=== PATIENT | female | born 1945 | race Caucasian/White ===

== ENCOUNTER 2016-08-19 09:40 | Inpatient (IN) | payer OTHER, MEDICARE ==
[~2016-08-19] VITALS: Ht 170.2 cm; Wt 73.5 kg
[~2016-08-19 09:40] MED LIST: ASPI81TA28 PO; CHOL100010 PO; CRAN1CAP15 PO; DOCU100C31 PO; FERR1TAB13 PO; METO50TA7 PO; MULT-602 PO; PANT40TA PO; PARO1TAB27 PO; SIMV20TA5 PO
--- NOTE | 2016-08-19 10:47 | EMERGENCY ROOM VISIT NOTE ---
History Report prepared by Lonnie: Godwin Daley Under the Supervision of: Dr. Maria Luisa Carrillo M.D. First contact with patient: 10:16 Chief Complaint: FLU LIKE SX Stated Complaint: FLU LIKE SYMPTOMS History of Present Illness The patient is a 71 year old female who presents to the Emergency Room with complaints of persistent confusion starting about 2 hours ago. The patient had also been complaining of chest pain and arm pain. Her was unable to understand what she was saying. The patient remembers waking up but she does not remember being confused. As per , she was at baseline yesterday. She has had intermittent episodes of confusion before. The patient did not have any fevers but her skin was cool to touch this morning. She has a history of UTI and often becomes confused. She also has a history of multiple TIA. She is not on any blood thinners. HPI is limited secondary to altered mental status. Source of History: patient, spouse/significant other History Limited By: AMS Onset: about 2 hours ago Position: other (global) Quality: other (confusion) Timing: other (persistent) Associated Symptoms: + chest pain, No fevers Review of Systems ROS is limited secondary to altered mental status. Past Medical & Surgical Medical Problems: (1) Cardiac arrhythmia (2) Chest pain (3) DM type 2 (diabetes mellitus, type 2) (4) Dyslipidemia (5) GERD (gastroesophageal reflux disease) (6) Gout (7) Heart failure due to valvular disease (8) Hypertrophic obstructive cardiomyopathy (9) Osteoarthritis (10) Osteoporosis Surgical Problems: (1) History of hysterectomy (2) History of right shoulder replacement (3) History of total left hip replacement (4) Hx of tonsillectomy (5) S/P MVR (mitral valve replacement) Family History Cancer Diabetes mellitus FH: heart disease Hypertension Social History Smoking Status: Never Smoker Alcohol Use: none Marital Status: Housing Status: lives with significant other Occupation Status: retired Current/Historical Medications Scheduled Aspirin (Aspirin Ec), 81 MG PO DAILY Lisinopril (Prinivil), 1 TAB PO DAILY Metformin Ext Rel (Glucophage Ext Rel), 1 TAB PO BID Metoprolol Tartrate (Lopressor), 50 MG PO BID Multiple Vitamins W/ Minerals (Womens 50+ Multi Vitamin), 1 TAB PO QAM Pantoprazole (Protonix), 40 MG PO QAM Paroxetine (Paxil), 10 MG PO QAM Simvastatin (Zocor), 20 MG PO HS Allergies Coded Allergies: Sulfa Antibiotics (Unverified Allergy, Intermediate, RASH - HAPPENED A LONG TIME AGO, 01/22/16) Penicillins (Verified Allergy, Unknown, RASH - HAPPENED LONG TIME AGO, 01/21) Physical Exam Vital Signs Date Time Temp Pulse Resp B/P Pulse Ox O2 Delivery O2 Flow Rate FiO2 08/19/16 12:51 79 21 159/81 96 08/19/16 12:30 96 Room Air 08/19/16 11:17 77 20 126/74 95 Room Air 08/19/16 09:56 81 08/19/16 09:54 36.9 79 19 165/92 97 Room Air Physical Exam Vital signs reviewed. General: Elderly, chronically ill-appearing, in some discomfort. HEENT: No scleral icterus, PERRLA, neck supple. Atraumatic. Cardiovascular: Regular rate and rhythm, no extra sounds. Pulmonary: Clear to auscultation bilaterally, normal work of breathing. Abdomen: Soft, nontender, nondistended, positive bowel sounds. Musculoskeletal: Atraumatic, no peripheral edema. Neurologic: Patient awake and alert, able to state location, says it is 1965, says she is 61 years old, full strength in all 4 extremities. Cranial nerves 2 through 12 grossly intact. Skin: Warm, dry, no rash Medical Decision & Procedures ER Provider Diagnostic Interpretation: X-ray results as stated below per interpretation by me and the radiologist: CHEST ONE VIEW PORTABLE HISTORY: Altered mental status. COMPARISON: Chest 12/10/2015. FINDINGS: No pneumothorax. Left-sided dual chamber pacemaker. Postoperative changes. Moderate hiatus hernia. The heart is borderline enlarged. This remains unchanged. Emphysema. The upper lung zones are clear. Right shoulder arthroplasty and postoperative changes within the proximal left humerus are again noted. The left lung is clear. No evidence for pulmonary edema. No change in the right basilar interstitial thickening and patchy densities. No new focal lung consolidations. Stable blunting of the right lateral costophrenic sulcus. IMPRESSION: No significant change compared to the prior study. Right basilar interstitial thickening and patchy densities persist. The long-term stability favors a chronic process suggests scarring or atelectasis. However, superimposed pneumonia cannot be entirely excluded. Hiatus hernia. Emphysema. Electronically signed by: Marquise Alicia M.D. 08/19/2016 11:33 AM Dictated Date/Time: 08/19/2016 11:[address] results as stated below per my review and radiologist interpretation: HEAD CT NONCONTRAST CT DOSE: 614.27 mGy.cm HISTORY: Mental status change CVA< AMS TECHNIQUE: Multiaxial CT images of the head were performed without the use of intravenous contrast. Comparison: 12/11/2015 Findings: The paranasal sinuses and mastoid air cells are clear. Findings suggestive of somewhat progressive chronic small vessel change of the periventricular deep white matter regions. Diminished density of the occipital regions bilaterally. No evidence for acute intracranial hemorrhage. No midline shift. Impression: 1. Progressive periventricular and occipital lobe regions of diminished density compared to the prior study. 2. Although possibly simply secondary to progressive chronic small vessel change, etiologies such as progressive posterior encephalopathy, versus a subacute ischemic process may be considered. 3. MRI of the brain if possible is suggested Electronically signed by: Garrett Figueroa M.D. 08/19/2016 11:57 AM Dictated Date/Time: 08/19/2016 11:53 AM Laboratory Results Test 08/19/16 09:00 08/19/16 11:13 08/19/16 11:30 08/19/16 12:50 Immature Granulocyte % (Auto) 0.2 % White Blood Count 5.06 K/uL (4.8-10.8) Red Blood Count 4.46 M/uL (4.2-5.4) Hemoglobin 13.1 g/dL (12.0-16.0) Hematocrit 37.1 % (37-47) Mean Corpuscular Volume 83.2 fL (80-100) Mean Corpuscular Hemoglobin 29.4 pg (25-34) Mean Corpuscular Hemoglobin Concent 35.3 g/dl (32-36) Platelet Count 135 K/uL (130-400) Mean Platelet Volume 11.2 fL (7.4-10.4) Neutrophils (%) (Auto) 66.4 % Lymphocytes (%) (Auto) 25.9 % Monocytes (%) (Auto) 6.7 % Eosinophils (%) (Auto) 0.4 % Basophils (%) (Auto) 0.4 % Neutrophils # (Auto) 3.36 K/uL (1.4-6.5) Lymphocytes # (Auto) 1.31 K/uL (1.2-3.4) Monocytes # (Auto) 0.34 K/uL (0.11-0.59) Eosinophils # (Auto) 0.02 K/uL (0-0.5) Basophils # (Auto) 0.02 K/uL (0-0.2) Immature Granulocyte # (Auto) 0.01 K/uL (0.00-0.02) Total Bilirubin 0.6 mg/dl (0.2-1) Direct Bilirubin 0.2 mg/dl (0-0.2) Aspartate Amino Transf (AST/SGOT) 25 U/L (15-37) Alanine Aminotransferase (ALT/SGPT) 30 U/L (12-78) Alkaline Phosphatase 62 U/L (45-117) Total Protein 7.9 gm/dl (6.4-8.2) Albumin 3.8 gm/dl (3.4-5.0) Thyroid Stimulating Hormone (TSH) 3.000 uIu/ml (0.300-4.500) Prothrombin Time 11.6 SECONDS (9.0-12.0) Prothromb Time International Ratio 1.1 (0.9-1.1) Activated Partial Thromboplast Time 25.3 SECONDS (21.0-31.0) Partial Thromboplastin Ratio 1.0 Bedside Troponin I 0.000 ng/ml (0-0.045) Urine Color YELLOW Urine Appearance CLEAR (CLEAR) Urine pH >= 9.0 (4.5-7.5) Urine Specific [place] 1.012 (1.000-1.030) Urine Protein NEG (NEG) Urine Glucose (UA) NEG (NEG) Urine Ketones NEG (NEG) Urine Occult Blood NEG (NEG) Urine Nitrite NEG (NEG) Urine Bilirubin NEG (NEG) Urine Urobilinogen NEG (NEG) Urine Leukocyte Esterase NEG (NEG) Laboratory results per my review. Medications Administered Medications (Trade) Dose Ordered Sig/Radha Route Start Time Stop Time Status Last Admin Dose Admin Sodium Chloride (Nss 1000ml) 1,000 ml @ 125 mls/hr Q8H STAT IV 08/19/16 10:53 08/19/16 18:52 DC 08/19/16 11:32 125 MLS/HR Magnesium Sulfate (Magnesium Sulfate) 2 gm NOW STAT IV 08/19/16 12:04 08/19/16 12:05 DC 08/19/16 13:13 2 GM ECG Indication: altered mental status Rate (beats per minute): 75 Rhythm: other (Ventricular paced rhythm) Findings: no acute ischemic change, no ectopy ED Course 1016: Past medical records reviewed. The patient was evaluated in room A04B. A complete history and physical examination was performed. 1053: Sodium Chloride 1000 ml @ 125 mls/hr IV 1204: Magnesium Sulfate 2 gm IV 1208: Upon reevaluation, the patient is resting comfortably. I discussed laboratory and radiographic results with the patient and her family. She verbalized agreement of the treatment plan. I spoke with JOSE Rhoades of the [facility]. The patient will be evaluated for further management and care. Medical Decision Differential diagnosis: Etiologies such as metabolic, infection, hypoglycemia, electrolyte abnormalities , cardiac sources, intracerebral event, toxicologic, neurologic, as well as others were entertained. This patient was evaluated and appeared to be in some discomfort. Patient seems to be pleasantly confused. She is not able to answer questions regarding date and her age. The patient looks to her for details regarding current events. At this time the patient's physical examination is fairly unrevealing otherwise. CT scan of the head was performed and reveals changes as above. The patient's laboratory evaluation is fairly unrevealing. Magnesium is 1.4 and was repleted with 2 g IV. Urinalysis is negative. At this time the etiology of the altered mentation is unclear. She will be evaluated by the hospitalist service for further management. Family members are aware of the plan and agree. Consults Time Called: 1205 Consulting Physician: JOSE Rhoades of the [facility] Returned Call: 1208 I spoke with JOSE Rhoades of the [facility]. Impression Primary Impression: Altered mental status Scribe Attestation The scribe's documentation has been prepared under my direction and personally reviewed by me in its entirety. I confirm that the note above accurately reflects all work, treatment, procedures, and medical decision making performed by me. Departure Information Dispostion Being Evaluated By Hospitalist Referrals Hood Fernando MD (PCP) Patient Instructions My [facility]
[2016-08-19] MEDS ORDERED: SODIUM CHLORIDE 0.9% 1000ML 1,000 ML IV STA (10:53)
[2016-08-19 11:02] LABS: BASO % 0.4 %; BASO ABS # 0.02 K/uL (0-0.2); COMPLETE YES; EOS % 0.4 %; HEMATOCRIT 37.1 % (37-47); IG% 0.2 %; LYMPH % 25.9 %; LYMPH ABS # 1.31 K/uL (1.2-3.4); MEAN CELL VOLUME 83.2 fL (80-100); MEAN CORPUSCULAR HEMOGLOBIN 29.4 pg (25-34); MEAN CORPUSCULAR HGB CONC 35.3 g/dl (32-36); MEAN PLATELET VOLUME 11.2 fL (7.4-10.4); MONO % 6.7 %; NEUT % 66.4 %; PLATELET COUNT 135 K/uL (130-400); RED BLOOD COUNT 4.46 M/uL (4.2-5.4); WHITE BLOOD COUNT 5.06 K/uL (4.8-10.8)
[2016-08-19 11:15] LABS: CALCIUM 9.2 mg/dl (8.5-10.1); CREATININE 0.77 mg/dl (0.60-1.20); MAGNESIUM 1.4 mg/dl (1.8-2.4)
[2016-08-19 11:26] LABS: CKMB/CK RATIO 2.8 (0-3.0)
--- NOTE | 2016-08-19 11:36 | DIAGNOSTIC IMAGING REPORT ---
CHEST ONE VIEW PORTABLE HISTORY: Altered mental status. COMPARISON: Chest 12/10/2015. FINDINGS: No pneumothorax. Left-sided dual chamber pacemaker. Postoperative changes. Moderate hiatus hernia. The heart is borderline enlarged. This remains unchanged. Emphysema. The upper lung zones are clear. Right shoulder arthroplasty and postoperative changes within the proximal left humerus are again noted. The left lung is clear. No evidence for pulmonary edema. No change in the right basilar interstitial thickening and patchy densities. No new focal lung consolidations. Stable blunting of the right lateral costophrenic sulcus. IMPRESSION: No significant change compared to the prior study. Right basilar interstitial thickening and patchy densities persist. The long-term stability favors a chronic process suggests scarring or atelectasis. However, superimposed pneumonia cannot be entirely excluded. Hiatus hernia. Emphysema. Electronically signed by: Marquise Alicia M.D. 08/19/2016 11:33 AM Dictated Date/Time: 08/19/2016 11:27 AM
[2016-08-19 11:52] LABS: INR 1.1 (0.9-1.1); PROTHROMBIN TIME (PATIENT) 11.6 SECONDS (9.0-12.0)
--- NOTE | 2016-08-19 11:59 | DIAGNOSTIC IMAGING REPORT ---
HEAD CT NONCONTRAST CT DOSE: 614.27 mGy.cm HISTORY: Mental status change CVA< AMS TECHNIQUE: Multiaxial CT images of the head were performed without the use of intravenous contrast. Comparison: 12/11/2015 Findings: The paranasal sinuses and mastoid air cells are clear. Findings suggestive of somewhat progressive chronic small vessel change of the periventricular deep white matter regions. Diminished density of the occipital regions bilaterally. No evidence for acute intracranial hemorrhage. No midline shift. Impression: 1. Progressive periventricular and occipital lobe regions of diminished density compared to the prior study. 2. Although possibly simply secondary to progressive chronic small vessel change, etiologies such as progressive posterior encephalopathy, versus a subacute ischemic process may be considered. 3. MRI of the brain if possible is suggested Electronically signed by: Garrett Figueroa M.D. 08/19/2016 11:57 AM Dictated Date/Time: 08/19/2016 11:53 AM
[2016-08-19] MEDS ORDERED: MAGNESIUM SULFATE 1GM / D5W 1 GM BAG IV STA (12:04)
[2016-08-19 12:30] VITALS: O2SAT 96; Ht 170.2 cm; Wt 73.5 kg
[2016-08-19] MEDS ORDERED: ONDANSETRON INJ 2 MG/ML 2 ML VIAL IV PRN (13:15)
[2016-08-19] MEDS ORDERED: ACETAMINOPHEN 325 MG TAB PO PRN (13:15)
[2016-08-19 13:30] LABS: URINE APPEARANCE CLEAR (CLEAR); URINE BILIRUBIN NEG (NEG); URINE COLOR YELLOW; URINE NITRITE NEG (NEG); URINE PH >= 9.0 (4.5-7.5); URINE SPECIFIC GRAVITY 1.012 (1.000-1.030); UROBILINOGEN NEG (NEG); ZZURINE CULT IF INDIC CATH NO
[2016-08-19] MEDS ORDERED: PHARMACIST DISCHARGE MED REC CONSULT PRN (13:30)
[2016-08-19] MEDS ORDERED: METF-382 PO (13:39)
[2016-08-19] MEDS ORDERED: LPR25 PO (13:39)
[2016-08-19] MEDS ORDERED: LISI10TA PO (13:39)
[2016-08-19 13:45] LABS: MANUAL MICROSCOPIC REQUIRED? NO; REVIEW REQ? NO
[2016-08-19] MEDS ORDERED: GLUCOSE 10 TABS/TUBE PO PRN (13:45)
[2016-08-19] MEDS ORDERED: GLUCOSE 40% GEL 15 GM TUBE PO PRN (13:45)
[2016-08-19] MEDS ORDERED: GLUCAGON FOR INJ 1 MG VIAL SQ PRN (13:45)
[2016-08-19] MEDS ORDERED: DEXTROSE 50% 50 ML SYR IV PRN (13:45)
--- NOTE | 2016-08-19 13:51 | History and Physical ---
History & Physical Date & Time of Service: Aug 19, 2016 at 13:51 Chief Complaint: Flu Like Symptoms Primary Care Physician: Anahi Marie M.D. History of Present Illness Source: patient, family, clinic records, hospital records Patient seen and examined. 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 History is taken primarily by the family as the patient is A& Ox0. Family reports that patient was doing well last evening. This morning the patient was sitting on the edge of bed for almost an hour not really doing anything. Her asked what was wrong and her speech was slurred and didn' t make sense. He reports she seemed very shaky. At one point she complained of chest pain and right arm pain so EMS was called. Currently the patient is not oriented. She is tearful and does not answer questions appropriately. She does follow most commands. Family denies any fevers/chills, recently. They deny patient complaining of about any diarrhea or dysuria. She has not seemed SOB. They report she has occasional confusion but nothing everyday. They deny any unilateral weakness or facial droop. In the ED VS are stable, mg is 1.4, CT head shows possible subacute stroke. She will be admitted for further workup and treatment. Past Medical/Surgical History Medical Problems: (1) DM type 2 (diabetes mellitus, type 2) Status: Chronic (2) Dyslipidemia Status: Chronic (3) GERD (gastroesophageal reflux disease) Status: Chronic (4) Gout Status: Chronic (5) Heart failure due to valvular disease Status: Chronic (6) Hypertrophic obstructive cardiomyopathy Status: Chronic (7) Osteoarthritis Status: Chronic (8) Osteoporosis Status: Chronic Surgical Problems: (1) History of hysterectomy Status: Chronic (2) History of right shoulder replacement Status: Chronic (3) History of total left hip replacement Status: Chronic (4) Hx of tonsillectomy Status: Chronic (5) S/P MVR (mitral valve replacement) Status: Chronic Family History Cancer Diabetes mellitus FH: heart disease Hypertension Social History Smoking Status: Never Smoker Alcohol Use: none Marital Status: Housing status: lives with family Occupational Status: retired Allergies Coded Allergies: Sulfa Antibiotics (Unverified Allergy, Intermediate, RASH - HAPPENED A LONG TIME AGO, 01/22/16) Penicillins (Verified Allergy, Unknown, RASH - HAPPENED LONG TIME AGO, 01/21) Home Medications Scheduled Aspirin (Aspirin Ec), 81 MG PO DAILY Lisinopril (Prinivil), 1 TAB PO DAILY Metformin Ext Rel (Glucophage Ext Rel), 1 TAB PO BID Metoprolol Tartrate (Lopressor), 50 MG PO BID Multiple Vitamins W/ Minerals (Womens 50+ Multi Vitamin), 1 TAB PO QAM Pantoprazole (Protonix), 40 MG PO QAM Paroxetine (Paxil), 10 MG PO QAM Simvastatin (Zocor), 20 MG PO HS Review of Systems Unable to obtain d/t mental status Physical Exam Vital Signs Date Time Temp Pulse Resp B/P Pulse Ox O2 Delivery O2 Flow Rate FiO2 08/19/16 12:51 79 21 159/81 96 08/19/16 12:30 96 Room Air 08/19/16 11:17 77 20 126/74 95 Room Air 08/19/16 09:56 81 08/19/16 09:54 36.9 79 19 165/92 97 Room Air General Appearance: + pertinent finding (WD/WN 71 year old female tearful, lying in bed in NAD with family at bedside ) Head: normocephalic, atraumatic Eyes: PERRL, sclerae normal ENT: hearing grossly normal, pharynx normal Neck: supple, no JVD Respiratory/Chest: chest non-tender, lungs clear, normal breath sounds, no respiratory distress, no accessory muscle use Cardiovascular: regular rate, rhythm, no edema, no gallop, no JVD, no murmur, normal peripheral pulses Abdomen/GI: normal bowel sounds, non tender, soft Back: normal inspection, no CVA tenderness, no muscle spasm Extremities/Musculoskelatal: no calf tenderness, normal capillary refill, no pedal edema Neurologic/Psych: + pertinent finding (Alert, disoriented, moves all extremities appropriately with equal strength. Does not follow all commands, does not answer questions appropriately ) Skin: normal color, warm/dry, no rash Lymphatic: no adenopathy Diagnostics Laboratory Results Results Past 24 Hours Test 08/19/16 09:00 08/19/16 11:13 08/19/16 11:30 08/19/16 12:50 Range/Units White Blood Count 5.06 4.8-10.8 K/uL Red Blood Count 4.46 4.2-5.4 M/uL Hemoglobin 13.1 12.0-16.0 g/dL Hematocrit 37.1 37-47 % Mean Corpuscular Volume 83.2 80-100 fL Mean Corpuscular Hemoglobin 29.4 25-34 pg Mean Corpuscular Hemoglobin Concent 35.3 32-36 g/dl Platelet Count 135 130-400 K/uL Mean Platelet Volume 11.2 7.4-10.4 fL Neutrophils (%) (Auto) 66.4 % Lymphocytes (%) (Auto) 25.9 % Monocytes (%) (Auto) 6.7 % Eosinophils (%) (Auto) 0.4 % Basophils (%) (Auto) 0.4 % Neutrophils # (Auto) 3.36 1.4-6.5 K/uL Lymphocytes # (Auto) 1.31 1.2-3.4 K/uL Monocytes # (Auto) 0.34 0.11-0.59 K/uL Eosinophils # (Auto) 0.02 0-0.5 K/uL Basophils # (Auto) 0.02 0-0.2 K/uL RDW Standard Deviation 41.3 36.4-46.3 fL RDW Coefficient of Variation 13.6 11.5-14.5 % Immature Granulocyte % (Auto) 0.2 % Immature Granulocyte # (Auto) 0.01 0.00-0.02 K/uL Sodium Level 140 136-145 mmol/L Potassium Level 4.0 3.5-5.1 mmol/L Chloride Level 101 98-107 mmol/L Carbon Dioxide Level 30 21-32 mmol/L Anion Gap 9.0 3-11 mmol/L Blood Urea Nitrogen 9 7-18 mg/dl Creatinine 0.77 0.60-1.20 mg/dl Est Creatinine Clear Calc Drug Dose 68.9 ml/min Estimated GFR () 88.8 Estimated GFR (Non- 76.6 BUN/Creatinine Ratio 12.0 10-20 Random Glucose 184 70-99 mg/dl Calcium Level 9.2 8.5-10.1 mg/dl Magnesium Level 1.4 1.8-2.4 mg/dl Total Bilirubin 0.6 0.2-1 mg/dl Direct Bilirubin 0.2 0-0.2 mg/dl Aspartate Amino Transf (AST/SGOT) 25 15-37 U/L Alanine Aminotransferase (ALT/SGPT) 30 12-78 U/L Alkaline Phosphatase 62 45-117 U/L Total Creatine Kinase 61 26-192 U/L Creatine Kinase MB 1.7 0.5-3.6 ng/ml Creatine Kinase MB Ratio 2.8 0-3.0 Total Protein 7.9 6.4-8.2 gm/dl Albumin 3.8 3.4-5.0 gm/dl Thyroid Stimulating Hormone (TSH) 3.000 0.300-4.500 uIu/ml Prothrombin Time 11.6 9.0-12.0 SECONDS Prothromb Time International Ratio 1.1 0.9-1.1 Activated Partial Thromboplast Time 25.3 21.0-31.0 SECONDS Partial Thromboplastin Ratio 1.0 Bedside Troponin I 0.000 0-0.045 ng/ml Urine Color YELLOW Urine Appearance CLEAR CLEAR Urine pH >= 9.0 4.5-7.5 Urine Specific Procious 1.012 1.000-1.030 Urine Protein NEG NEG Urine Glucose (UA) NEG NEG Urine Ketones NEG NEG Urine Occult Blood NEG NEG Urine Nitrite NEG NEG Urine Bilirubin NEG NEG Urine Urobilinogen NEG NEG Urine Leukocyte Esterase NEG NEG Test 08/19/16 13:11 08/19/16 13:25 08/19/16 13:26 Range/Units Diagnostic Radiology CXR Per radiologist read: IMPRESSION: No significant change compared to the prior study. Right basilar interstitial thickening and patchy densities persist. The long-term stability favors a chronic process suggests scarring or atelectasis. However, superimposed pneumonia cannot be entirely excluded. Hiatus hernia. Emphysema. CT HEAD Per radiologist read: Impression: 1. Progressive periventricular and occipital lobe regions of diminished density compared to the prior study. 2. Although possibly simply secondary to progressive chronic small vessel change, etiologies such as progressive posterior encephalopathy, versus a subacute ischemic process may be considered. 3. MRI of the brain if possible is suggested EKG Atrial sensed ventricular paced, 75 BPM, QTc 549 Impression Assessment and Plan 71 year old female presents to the ED with altered mental status beginning upon waking up this AM ALTERED MENTAL STATUS admit to tele -Differential diagnosis to include the following as well as other etiologies: -Subacute stroke: CT head with possible sub acute stroke -no focal deficits noted -Check carotid Doppler -Lipid profile -Neuro checks -Neurology consult for further input -Hold off on MRI head for the time being, as doubt patient would tolerate procedure at this time, and d/t pacemaker ? compatibility -Continue Statin -Increase Aspirin to 352mg daily -Infectious etiology -Check UA -CXR with ? chronic consolidation versus pneumonia -Empirically treat with Levaquin -Check blood cultures, flu PCR -Metabolic abnormalities -Mg 1.4, will replaces -Other electrolytes stable -Check VBG to assess for possible acidosis -Check Tox screen, salicylates, Tylenol level, folate, B12, vitamin D -Endocrine issues -has known history of DM, BSG 184 in ED, monitor BSG for hypoglycemia -TSH normal -Cardiac issues -family reports complaints of chest pain -Serial Chris, EKGs -Update echo -interrogate pacemaker -Continue Aspirin, Statin, BB -Monitor in tele -CBC, PRP, Mg in AM -VS stable, monitor per routine HYPOMAGNESEMIA -1.4 -replace -repeat in AM DM2 -hold metformin -SSI coverage -BSG AC HS HTN -stable -continue BB -hold lisinopril in setting of possible stroke H/O 3RD DEGREE AV BLOCK -s/p pacemaker -interrogate pending DEPRESSION -continue Paxil GERD -continue PPI DVT PROPHYLAXIS:Sq Lovenox CODE STATUS: FULL CODE DISPO:In my clinical judgment this beneficiary meets acute admission criteria, established by [facility], that includes being hospitalized through two midnights. Patient seen in collaboration with Dr. Parks I have seen and examined the patient and agree with the assessment and plan stated above. Ms. Breen has significant neurologic changes since yesterday when her states she was at her baseline (i/e: mentating without issues, ambulating with a walker, no speech deficits). Today she is slow to speak, disoriented to place and date and why she is here. She can state her name to me , but doesn't look at me well. When I asked her to look over my shoulder she required lots of prompting to get her head and eyes to turn and look over my shoulder. She also could not accurately tell me how many fingers I was holding up. Uncertain visual abilities. She also had difficulty performing finger to nose test, and kept touching my finger only--did not go back to her nose. She was making a concerted effort but was unable to comprehend the instruction given. Likewise, she was unable to relax her arms when prompted to do so and instead kept them fully flexed out in front of her. Otherwise reflexes appear to be normal, she has no apparent sensation loss, she is able to move all extremities equally and her strength is 5/5 and symmetric. She is able to swallow easily some juice at bedside but reports one week of non-productive cough that started after a choking spell at dinner. She denies any fevers, chills, or other complaints and this was corroborated by her . Physical exam was otherwise unremarkable. As she had complained of chest pain earlier, serial enzymes have been drawn and are negative. She did have some low Mg which was replaced. Other etiologies for AMS include but not limited to infection (UTI-->UA clear, encephalitis-->no headache, fever present), stroke vs progressive posterior encephalopathy vs progression of small vessel disease as seen on CT scan (MRI contraindicated 2/2 PM), cardiac OH vs arrhythmia (will trend enzymes, interrogate PM and monitor on telemetry), ?hypoglycemia, intoxication ruled out with normal acid/base status, no anion gap, salicylates, tylenol and utox negative. B12, folate and 25OH all within normal levels. Will cover for PNA in setting of new cough after choking and with reports of dyphagia per , ordered speech consult. Appreciate neuro recommendations as this appears to be a primary neurologic encephalopathy at this point. Cont to monitor on telemetry overnight. Radha Parks, Hospitalist Level of Care Telemetry Advanced Directives Existing Living Will: Yes Existing Power of Area Manager: Yes Resuscitation Status FULL RESUSCITATION VTE Prophylaxis VTE Risk Assessment Done? Y/N: Yes Risk Level: Moderate Given or contraindicated: Enoxaparin (Lovenox)SQ
[2016-08-19 14:43] VITALS: BP 144/80; PULSE 86; TEMP 36.8; O2SAT 95
[2016-08-19] MEDS ORDERED: ASPIRIN 325 MG ECTAB PO ONE (14:45)
[2016-08-19 15:07] LABS: VEN BLOOD GAS BASE EXCESS 4.7 mmol/L; VENOUS BLOOD GAS PCO2 45 mmHg (38.0-50.0); VENOUS BLOOD GAS PO2 23 mmHg
[2016-08-19 15:08] LABS: VEN BLD GAS O2 SATURATION < 60.0 %
[2016-08-19] MEDS: LEVOFLOXACIN / D5W 750 MG in PREMIXED IN D5W 150 ML IV SCH (15:18)
[2016-08-19 15:28] LABS: CKMB/CK RATIO 2.1 (0-3.0)
[2016-08-19 15:47] VITALS: BP 144/71; PULSE 88; TEMP 36.9; O2SAT 95
[2016-08-19 17:12] LABS: BENZODIAZEPINE, URINE NEG (NEG); COCAINE,URINE NEG (NEG); PHENCYCLIDINE, URINE NEG (NEG)
--- NOTE | 2016-08-19 17:14 | PROGRESS NOTE ---
DATE: 08/19/2016 SUBJECTIVE: Silvia is 71 [address] old [address] knows Dr[address] Amaya Marie and has a long history of type 2 diabetes, dyslipidemia, GERD, gout, cardiac failure due to valvular disease, hypertrophic obstructive cardiomyopathy, osteoarthritis, osteoporosis and surgically has had a hysterectomy, right shoulder replacement, total left hip replacement, history of tonsillectomy and mitral valve replacement and has a pacemaker on board. In this setting, she has a history of some increasing confusion and a question of dementia, has been raised recently by the family and apparently a primary care physician. She today awakened with a confusional state. She did not know where she was, she could not respond to her . Her speech was slurred. She made no sense in terms of her speech output, she seemed to be shaky, but no overt seizure activity was seen. She apparently had some chest pain, right arm pain and was brought to the hospital and was not oriented on arrival. She was tearful, could not answer questions appropriately, she did follow most commands. The family denied any recent fevers, sweats, chills and reported no complaints of diarrhea, dysuria, frequency of urination, but in the past she has had confusion with urinary tract infections. There have been no apparent visual issues, at least reported by the patient but again the family is a little vague on this. MEDICATIONS: List includes aspirin, lisinopril, metformin, metoprolol, multivitamins, pantoprazole, paroxetine, and simvastatin. ALLERGIES: SHE HAS ALLERGIES TO SULFA AND PENICILLINS. SOCIAL HISTORY: Reveals her to be a never smoked. Not a consumer of ethanol. She is . She lives with her family. She is retired. FAMILY HISTORY: Positive for diabetes, heart disease and hypertension. REVIEW OF SYSTEMS: Could not really be obtained to any degree of accuracy. I was at the bedside with her daughters today and they do not report any recent fevers, sweats, chills. Her weight has apparently been stable and her appetite has been good. She denies any visual problems, but then reluctantly admits that she and her have to go to the eye doctor. She has had apparently no shortness of breath, there have been no complaints of palpitations. She has had no diarrhea, vomiting, nausea and again no urinary frequency. She does have some arthritic complaints but these are standard. Mentally, the family feels that she has been declining, but they do not describe anything acute other than this morning when she was dazed staring off into space speech, her speech made no sense and she may have had some tremulousness. PHYSICAL EXAMINATION: VITAL SIGNS: On examination in the ER, blood pressure 159/81, pulse was 79. Respirations of 21. She is moderately over nourished. She appeared to be comfortable. HEENT: There were no deformities on examination of head, eyes, ears, nose and throat. LUNGS: Clear. No carotid bruits were heard. HEART: Had a regular rate. GASTROINTESTINAL: Bowel sounds were normal. There is no CVA tenderness. BACK: Unremarkable. EXTREMITIES: There is no calf tenderness, no pedal edema. NEUROLOGICALLY: Today, she is alert but is hesitant and slow in her speech. She is disoriented to place and time. I am not sure how well she is seeing. She can identify objects fairly accurately, but could not localize the nose on my face accurately. Could see the television set but could not describe what she was seeing and could not read the sign identifying her nurse, the location and the date from a distance. The standard reproduction of cartoon like figures nursing uses for testing mental status was accurate in the sense that she could identify a boy and a girl on her left visual field but seemed to ignore the picture of the woman washing dishes until presented in that visual field, at which point she could describe a little bit about what the person was doing. I could not get her to accurately count digits in either visual field, although I tended to think she was paying moreattention on the left but this was inconsistent. Rbhath-ao-[id number] testing was very difficult as she could not seem to grasp the concepts of my finger being a target and when she did, she did a lot of past pointing and missing. Despite this, she denied any problems with vision. Pupils were equal, round and reactive to light. Eye movements were normal. I saw no nystagmus. No limitation of movement and ocular fundi were very difficult to see. I did not see any gross relative afferent pupillary defect. Facial motility and strength are normal. Facial sensation was normal. Speech was a little slurred. I do not see any drift or pronation sign, tremor, tics or choreiform activity. Reflexes were actually little on the brisk side. Toes were neutral to downgoing. She, despite her diabetes claimed she could feel the tuning fork in all extremities, although I am not certain that the appreciation of sensation in the distal lower extremities was normal. LABORATORY DATA: Basic laboratory studies so far have been unremarkable. Urinalysis showed no significant white cells. Culture is pending. The basic chemistry studies are normal with the exception of glucose of 184. B12 level is 386. TSH is 3, folic acid is 24, vitamin D is 58. The major salient abnormality is a head CT which shows extensive leukoencephalopathic changes anteriorly, which have been present previously and are probably progressive and also a profound degree of subcortical leukoencephalopathy of fairly symmetrical type in the bioccipital regions When one looks back on prior CT scans, a similar pattern was seen as recently as 7-8 months ago and also probably about 2 years ago, but the current findings seem much more pronounced, particularly in the posterior head regions. There is some compensatory ventriculomegaly, but not a whole lot of cortical atrophy, although some is definitely present. 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 She does not have a history of migraines. There are no other family members that I can at least detect historically who have had cognitive impairment or migraine headaches and I guess one could remotely consider the syndrome CADASIL, but I am not sure doing a genetic testing at this point has any real value and the distribution of the changes in the posterior portions of the hemispheres is atypicl for this entity. It is hard to establish when the accentuation of the posterior leukoencephalopathic findings occurred -I doubt that it was all this morning but it may have been progressive over the past few days. The pattern is reminiscent of PRES but there are no clear precipitating factors unless her blood pressures at home were very high or surging. 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 Unfortunately we cannot do an mri to assess any recent activity and are going to have to rely on serial CT scans I am going to check the carotids, although I do not think we are going to have significant extracranial disease and I am going to check an EEG as some of the activity described by the family might be compatible with seizures. Dr. Adorno is going to see her in the morning along with Tania Jaime and see what other testing they might recommend. [facility]
[2016-08-19 17:15] LABS: INFLUENZA A PCR Neg for Influ A (NEG); INFLUENZA B PCR Neg for Influ B (NEG)
[2016-08-19] MEDS: INSULIN ASPART 100 UNITS/ML 3 ML PEN SC SCH ×2 (18:27→21:06)
--- NOTE | 2016-08-19 18:59 | DIAGNOSTIC IMAGING REPORT ---
ULTRASOUND OF THE CAROTID ARTERIES CLINICAL HISTORY: Stroke COMPARISON STUDY: None. TECHNIQUE: Real-time, grayscale, and color Doppler sonography of the carotid arteries was performed. Imaging reviewed in the transverse and longitudinal planes. NASCET criteria was utilized for stenosis calcification. FINDINGS: There is mild atherosclerotic plaque present . The peak systolic velocity within the right internal carotid artery is 41 cm/sec. The systolic velocity ratio of right internal to common carotid artery is 0.4. The peak systolic velocity within the left internal carotid artery is 48 cm/sec. The systolic velocity ratio left internal to common carotid artery is 0.6. Antegrade flow is seen in the vertebral arteries. The external carotid arteries are patent. There is slightly diminished diastolic flow within the right internal carotid artery. And intracranial process cannot be excluded. Blood pressure in the right arm measured 153 mm/Hg. Blood pressure in the left arm measured 148 mm/Hg. IMPRESSION: No evidence of hemodynamically significant carotid stenosis. Electronically signed by: Farhad Mccray M.D. 08/19/2016 6:57 PM Dictated Date/Time: 08/19/2016 6:53 PM
[2016-08-19 19:32] VITALS: BP 132/63; PULSE 76; TEMP 36.8; O2SAT 95
[2016-08-19 20:00] VITALS: O2SAT 95
[2016-08-19] MEDS: METOPROLOL TARTRATE 50 MG TAB PO SCH (20:34)
[2016-08-19] MEDS: ENOXAPARIN 40 MG/0.4 ML SYR SC SCH (20:34)
[2016-08-19] MEDS: SIMVASTATIN 20 MG TAB PO SCH (20:34)
[2016-08-19 21:51] LABS: CKMB/CK RATIO 2.1 (0-3.0)
[2016-08-19 23:27] VITALS: BP 149/80; PULSE 66; TEMP 37; O2SAT 96
[2016-08-20 00:01] VITALS: O2SAT 96
[2016-08-20 03:40] VITALS: BP 158/92; PULSE 59; TEMP 36.6; O2SAT 98
[2016-08-20 06:39] LABS: HEMATOCRIT 34.9 % (37-47); MEAN CELL VOLUME 84.5 fL (80-100); MEAN CORPUSCULAR HEMOGLOBIN 28.8 pg (25-34); MEAN CORPUSCULAR HGB CONC 34.1 g/dl (32-36); MEAN PLATELET VOLUME 10.7 fL (7.4-10.4); PLATELET COUNT 106 K/uL (130-400); RED BLOOD COUNT 4.13 M/uL (4.2-5.4); WHITE BLOOD COUNT 3.21 K/uL (4.8-10.8)
[2016-08-20] MEDS ORDERED: OPTIRAY 320 IV PRN (06:45)
[2016-08-20 07:09] LABS: BUN/CREATININE RATIO 10.9 (10-20); CALCIUM 8.5 mg/dl (8.5-10.1); CREATININE 0.7 mg/dl (0.60-1.20); MAGNESIUM 1.9 mg/dl (1.8-2.4); POTASSIUM 3.8 mmol/L (3.5-5.1)
[2016-08-20 07:12] LABS: CHOLESTEROL/HDL RATIO 4.3
--- NOTE | 2016-08-20 07:14 | PROGRESS NOTE ---
DATE: 08/20/2016 I just reviewed Silvia's imaging studies and noted that the CT scan done in the ER did not include contrast enhancement. The duplex of the carotids suggest some possible intracranial issues on the left carotid system, but the newer changes are in the occipital regions and in the posterior circulation I am going to repeat a CT today with contrast and also perform a CTA of the cerebral vessels with contrast. It will be small to be absolutely certain that the edema in the occipital region does not contain bilateral metastatic deposits or another unexpected issue and I certainly also would need to look at the intracranial circulation posteriorly. MTDD
[2016-08-20 07:48] VITALS: BP 156/84; PULSE 67; TEMP 36.8; O2SAT 96
[2016-08-20] MEDS ORDERED: ASPIRIN 325 MG ECTAB PO SCH (09:00)
--- NOTE | 2016-08-20 09:17 | DIAGNOSTIC IMAGING REPORT ---
CT ANGIOGRAPHY HEAD COMBO CT DOSE: 1321.76 mGy.cm CLINICAL HISTORY: Altered mental status. History of bicipital infarcts. TECHNIQUE: Unenhanced images were obtained through the brain. The patient was then scanned in a dynamic helical fashion during intravenous administration of 91 cc Optiray 320. MIP imaging was performed. COMPARISON STUDY: Noncontrast head CT dated 08/19/2016 FINDINGS: Noncontrast images reveal extensive white matter disease most pronounced within the occipital regions. There is no evidence of acute hemorrhage. There is no hydrocephalus. Postcontrast images reveal no evidence of aneurysm. There are no major intracranial branch occlusions. There are no findings to indicate dural venous sinus thrombosis. There are no pathologically enhancing masses. There is a dominant left vertebral artery. There is a origin left posterior cerebral artery. IMPRESSION: 1. No evidence of aneurysm 2. No evidence of significant intracranial stenosis 3. Extensive white hypodensity, most pronounced in the occipital regions 4. No evidence of dural venous sinus thrombosis Electronically signed by: Farhad Mccray M.D. 08/20/2016 9:15 AM Dictated Date/Time: 08/20/2016 9:10 AM
[2016-08-20] MEDS: PANTOprazole SOD 40 MG TAB PO SCH (09:48)
[2016-08-20] MEDS: PAROXETINE 20 MG TAB PO SCH (09:48)
[2016-08-20] MEDS: CEROVITE ADV FORMULA TAB PO SCH (09:48)
[2016-08-20] MEDS: METOPROLOL TARTRATE 50 MG TAB PO SCH ×2 (09:48→20:04)
[2016-08-20] MEDS: INSULIN ASPART 100 UNITS/ML 3 ML PEN SC SCH ×4 (09:56→20:00)
[2016-08-20 11:25] VITALS: BP 158/96; PULSE 65; TEMP 36.5; O2SAT 96
--- NOTE | 2016-08-20 12:35 | ELECTROENCEPHALOGRAPH REPORT ---
CLINICAL DIAGNOSIS: Leukoencephalopathic changes of progressive type with episodic confusion. ELECTROENCEPHALOGRAM DIAGNOSIS: Abnormal EEG with increased focal slow wave activity left central mid temporal regions and right temporal regions during apparent clinical wakefulness. DESCRIPTION OF TRACING: This EEG was done as a bedside recording and is of reasonable technical quality with a few muscle movement artifacts which were also captured by video analysis of patient movement and behavior. Photic stimulation was performed. Hyperventilation was not. Drowsiness and light sleep are not seen. Under these conditions, there is evidence for no normal background activity in the alpha range but rather slower rhythm in the occipital regions of about 7 Hz of maximum frequency and of about 30 microvolts of maximum amplitude. This is maximum posterior head regions bilaterally symmetrical. Polymorphic moderate amplitude slow wave activity in the theta and delta ranges is seen over the left central mid temporal regions and also in the right mid temporal regions, episodically throughout the recording. There are occasionally sharp waveforms affiliated with this but it is difficult at times to dissect this from muscle and movement artifacts. No unequivocal potentially epileptogenic patterns are seen and no clinical manifestations are noted on video analysis that might be compatible with partial seizures. Photic stimulation was some minimal driving response without a photoparoxysmal or photomyogenic component. At no time during the waking tracing, no evidence of clear cut evidence for potentially epileptogenic activity, although at times rhythmic nature of the theta slowing is worrisome of a potential seizure focus. INTERPRETATION: This EEG is abnormal with a generalized pattern of increased slow wave activity and in addition focal abnormalities of slowing overlying the left central regions and the right mid temporal regions during wakefulness with some rhythmic qualities of the discharges that in the appropriate clinical setting might weekly support the presence a potentially epileptogenic activity. As noted above, however, there are no classic potentially epileptiform discharges seen during the waking tracing. Clinical correlation is required. CLYDE
--- NOTE | 2016-08-20 14:16 | Neurology Progress Notes ---
Neurology Progress Note Date of Service Aug 20, 2016. 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 Her called EMS due to confusion and CP. Her stated that she was sitting on the edge of the bed for almost an hour without moving. Her speech didn't seem to make sense and she was kind of shaky. She stated she had CP, and right arm pain so EMS was called. She was confused and not oriented when she arrived in the ED. Currently her and son are in the room. She is sitting bedside and her said she seems much better than yesterday. Her PCP had been working her up for dementia because she has been having some memory problems according to her . denies CP, SOB, abdominal pain, weakness, fall, N, V. He also states her appetite has not been good recently but denies weight loss. Objective Date Time Temp Pulse Resp B/P Pulse Ox O2 Delivery O2 Flow Rate FiO2 08/20/16 12:07 Room Air 08/20/16 11:25 36.5 65 20 158/96 96 Room Air 08/20/16 08:00 Room Air 08/20/16 07:48 36.8 67 20 156/84 96 Room Air 08/20/16 04:00 Room Air 08/20/16 03:40 36.6 59 20 158/92 98 Room Air 08/20/16 00:01 96 Room Air 08/19/16 23:27 37.0 66 18 149/80 96 Room Air 08/19/16 20:00 95 Room Air 08/19/16 19:32 36.8 76 18 132/63 95 08/19/16 16:22 Room Air 08/19/16 15:47 36.9 88 18 144/71 95 Room Air 08/19/16 14:43 36.8 86 18 144/80 95 Room Air 08/19/16 13:52 75 21 150/107 95 Last 24 Hours Test 08/19/16 14:52 08/19/16 15:30 08/19/16 16:20 08/19/16 16:40 Venous Blood pH 7.44 Venous Blood Partial Pressure CO2 45 mmHg Venous Blood Partial Pressure O2 23 mmHg Venous Blood HCO3 30 mmol/L Venous Blood Oxygen Saturation < 60.0 % Venous Blood Base Excess 4.7 mmol/L Total Creatine Kinase 87 U/L Creatine Kinase MB 1.8 ng/ml Creatine Kinase MB Ratio 2.1 Troponin I 0.024 ng/ml Vitamin B12 Level 386 pg/mL 25-Hydroxy Vitamin D Total 58.3 ng/ml Folate > 24.00 ng/mL Salicylates Level < 1.7 mg/dl Acetaminophen Level < 2 ug/ml Influenza Type A (RT-PCR) Neg for Influ A Influenza Type B (RT-PCR) Neg for Influ B Bedside Glucose 155 mg/dl Urine Opiates Screen NEG Urine Methadone, Qualitative NEG Urine Barbiturates NEG Urine Phencyclidine (PCP) Level NEG Ur Amphetamine/Methamphetamine NEG MDMA (Ecstasy) Screen NEG Urine Benzodiazepines Screen NEG Urine Cocaine Metabolite NEG Urine Marijuana (THC) NEG Test 08/19/16 20:56 08/19/16 21:13 08/20/16 06:23 08/20/16 06:40 Bedside Glucose 146 mg/dl 146 mg/dl Total Creatine Kinase 121 U/L Creatine Kinase MB 2.5 ng/ml Creatine Kinase MB Ratio 2.1 Troponin I 0.034 ng/ml White Blood Count 3.21 K/uL Red Blood Count 4.13 M/uL Hemoglobin 11.9 g/dL Hematocrit 34.9 % Mean Corpuscular Volume 84.5 fL Mean Corpuscular Hemoglobin 28.8 pg Mean Corpuscular Hemoglobin Concent 34.1 g/dl RDW Standard Deviation 42.7 fL RDW Coefficient of Variation 13.9 % Platelet Count 106 K/uL Mean Platelet Volume 10.7 fL Sodium Level 139 mmol/L Potassium Level 3.8 mmol/L Chloride Level 107 mmol/L Carbon Dioxide Level 23 mmol/L Anion Gap 9.0 mmol/L Blood Urea Nitrogen 8 mg/dl Creatinine 0.70 mg/dl Est Creatinine Clear Calc Drug Dose 75.2 ml/min Estimated GFR () 99.6 Estimated GFR (Non- 86.0 BUN/Creatinine Ratio 10.9 Random Glucose 149 mg/dl Calcium Level 8.5 mg/dl Magnesium Level 1.9 mg/dl Triglycerides Level 218 mg/dl Cholesterol Level 155 mg/dl HDL Cholesterol 36 mg/dl LDL Cholesterol, Calculated 75 mg/dl VLDL Cholesterol, Calculated 44 mg/dl Cholesterol/HDL Ratio 4.3 Test 08/20/16 11:23 Bedside Glucose 133 mg/dl Imaging: CTA head- No evidence of aneurysm No evidence of significant intracranial stenosis Extensive white hypodensity, most pronounced in the occipital regions No evidence of dural venous sinus thrombosis This EEG is abnormal with a generalized pattern of increased slow wave activity and in addition focal abnormalities of slowing overlying the left central regions and the right mid temporal regions during wakefulness with some rhythmic qualities of the discharges that in the appropriate clinical setting might weekly support the presence a potentially epileptogenic activity. As noted above, however, there are no classic potentially epileptiform discharges seen during the waking tracing. Clinical correlation is required. Exam: Physical Exam: Constitutional: BP appearance nourished, healthy and normal Ears, Nose, Mouth and Throat: mucous membranes moist, no injection and skin normal, eyes normal Cardiovascular: normal S-1 and S-2 and regular rate and rhythm Respiratory: course breath sound Musculoskeletal: no peripheral edema and good distal pulses Skin: no stigmata of neurocutaneous disease noted and normal and intact Eyes: extraocular muscles intact (EOMI) and pupils equal, round and reactive to light (PERRL) NEUROLOGIC EXAMINATION: Mental status: Alert, interactive, can say no ifs ands or buts, can close her eyes, stick out tongue and point to the ceiling, knows she is at a hospital but thinks she is in [place] she know her and knows she has been for over 50 years. Cranial Nerves smile symmetric, tongue midline, eye brow raise symmetric Reflexes: Deep tendon reflexes were symmetrical and graded 2/5. Plantar responses were flexor. Sensory: no deficit to cool touch or vibration Coordination: finger to nose with no bipass or tremor Gait/Stance: Posture sitting up in bedside chair Motor: Negative for pronator drift of out stretched arms with eyes closed. Strength: biceps triceps, hand circuit recorder 5/5 bilaterally, hip flex plantar flex ext 5/5 bilaterally Current Inpatient Medications Medications (Trade) Dose Ordered Sig/Radha Route Start Time Stop Time Status Last Admin Dose Admin Enoxaparin Sodium (Lovenox Inj) 40 mg Q24H SC 08/19/16 21:00 09/18/16 20:59 08/19/16 20:34 40 MG Acetaminophen (Tylenol Tab) 650 mg Q4H PRN PO 08/19/16 13:15 09/18/16 13:14 Ondansetron HCl (Zofran Inj) 4 mg Q6H PRN IV 08/19/16 13:15 09/18/16 13:14 Miscellaneous Information (Pharmacist Discharge Med Rec Consult) 1 ea UD PRN N/A 08/19/16 13:30 09/18/16 13:29 Aspirin (Ecotrin Tab) 325 mg QAM PO 08/20/16 09:00 09/19/16 08:59 08/20/16 09:48 325 MG Insulin Aspart (novoLOG ASPART) SLIDING SCALE If C... ACHS SC 08/19/16 16:15 09/18/16 16:14 08/20/16 09:56 3 UNITS Glucose (Glucose 40% Gel) 15-30 GRAMS 15 GRAMS... UD PRN PO 08/19/16 13:45 09/18/16 13:44 Glucose (Glucose Chew Tab) 4-8 Tablets 4 Tabl... UD PRN PO 08/19/16 13:45 09/18/16 13:44 Dextrose (Dextrose 50% 50ML Syringe) 25-50ML OF 50% DW IV FOR... UD PRN IV 08/19/16 13:45 09/18/16 13:44 Glucagon (Glucagon Inj) 1 mg UD PRN SQ 08/19/16 13:45 09/18/16 13:44 Metoprolol Tartrate (Lopressor Tab) 50 mg BID PO 08/19/16 21:00 09/18/16 20:59 08/20/16 09:48 50 MG Multivitamins/ Minerals (Multivitamin W/ Minerals Tab) 1 tab QAM PO 08/20/16 09:00 09/19/16 08:59 08/20/16 09:48 1 TAB Pantoprazole Sodium (Protonix Tab) 40 mg QAM PO 08/20/16 09:00 09/19/16 08:59 08/20/16 09:48 40 MG Paroxetine HCl (pAXil TAB) 10 mg QAM PO 08/20/16 09:00 09/19/16 08:59 08/20/16 09:48 10 MG Simvastatin 20 mg 20 mg HS PO 08/19/16 21:00 09/18/16 20:59 08/19/16 20:34 20 MG Levofloxacin/Prmx (Levaquin / D5W/ Premixed D5W) 150 ml @ 100 mls/hr Q24H IV 08/19/16 16:00 08/26/16 15:59 08/19/16 15:18 100 MLS/HR Ioversol (Optiray 320) 100 ml UD PRN IV 08/20/16 06:45 08/24/16 06:44 Impression 71 year old female s/p change in MS currently improving Plan 1. EEG is abnormal but no epileptic form waves. will do an outpatient EEG 2. vit D, B12, folate all in normal range 3. no recent falls but had numerous falls in the past with fractures according to 4. PT/OT for discharge needs 5. CTA with contrast no acute findings- no aneurysms or lesions 6. unable to obtain MRI due to pacemaker 7. dementia work up in progress by PCP according to . 8. unclear the etiology of the confusion with add plavix 75 mg to aspirin 81 mg and see her in follow up 9. TTE -ordered I have seen and discussed above patient with Dr Tania Adorno, neurology Pt with progressively leukoencephalopathy with spell of dysarthria and confusion. EEG abnl but not showing def sz. Exam pt awake, alert, o x person, place, no field cut, facial asymm, sym strength, nml cerebellar gait. Leukoenceph of uncertain etiology, most commonly would be related to vasc risk factors which should be treated. Plvix and aspirin for now. Repeat EEG as outpt. Discussed with pt and and ARIN Banda MD
[2016-08-20 15:39] VITALS: BP 157/70; PULSE 62; TEMP 36.6; O2SAT 94
[2016-08-20] MEDS ORDERED: CLOPIDOGREL BISULFATE 75 MG TAB PO ONE (16:00)
[2016-08-20] MEDS: LEVOFLOXACIN / D5W 750 MG in PREMIXED IN D5W 150 ML IV SCH (16:37)
--- NOTE | 2016-08-20 17:14 | Progress Note ---
Internal Med Progress Note Date of Service: Aug 20, 2016. Provider Documentation: SUBJECTIVE: Patient is doing better today compared to yesterday per family Still a bit slow though. Awake, oriented x 2. Denies any complaints- No headaches, nausea, vomiting, fever, chills, slurred speech, localized weakness, numbness, tingling. OBJECTIVE: Vital Signs-as noted below Exam: General - Awake, oriented x 2, No distress Neck-Supple, No JVD Lungs-AEBE decreased, no wheezing Heart-S1, S2 normal, no murmurs Abdomen-Soft, non tender, non distended, BS present Extremities-No edema Neuro-AAOX2, Power- 5/5 all extremities, Sensation normal Diagnostic Radiology CXR Per radiologist read: IMPRESSION: No significant change compared to the prior study. Right basilar interstitial thickening and patchy densities persist. The long-term stability favors a chronic process suggests scarring or atelectasis. However, superimposed pneumonia cannot be entirely excluded. Hiatus hernia. Emphysema. CT HEAD Per radiologist read: Impression: 1. Progressive periventricular and occipital lobe regions of diminished density compared to the prior study. 2. Although possibly simply secondary to progressive chronic small vessel change, etiologies such as progressive posterior encephalopathy, versus a subacute ischemic process may be considered. 3. MRI of the brain if possible is suggested EKG Atrial sensed ventricular paced, 75 BPM, QTc 549 Lab data as noted below. ASSESSMENT & PLAN: Assessment and Plan : 71 year old female presents to the ED with altered mental status beginning upon waking up this AM. ALTERED MENTAL STATUS : Per patient's , she was by the edge of her bed not moving for almost an hour, shaky and speech was not clear. Was disoriented when she arrived to ED, improved today. Etiology unclear- TIA, Seizures considered -With prior history of TIAs, neurology added Plavix , continue with aspirin, statin -Work up- CT Head- Progressive periventricular and occipital lobe regions of diminished density compared to the prior study. 2. Although possibly simply secondary to progressive chronic small vessel change, etiologies such as progressive posterior encephalopathy, versus a subacute ischemic process may be considered. Unable to do MRI as has pacemaker, CTA- No acute findings, white density in occipital regions, Echo- pending, Carotid US - No stenosis noted; Pacemaker interrogation- negative Lipid panel, LDL- 75; Vit B12, Folic acid - normal HYPOMAGNESEMIA -Replaced DM2 -Hold metformin -SSI coverage -BSG AC HS HTN -stable -continue BB -Ok to restart lisinopril H/O 3RD DEGREE AV BLOCK -S/P pacemaker -interrogate pending DEPRESSION -continue Paxil GERD -continue PPI DVT PROPHYLAXIS:Sq Lovenox CODE STATUS: FULL CODE DISPO Tele monitoring PT/OT ordered Discussed with neurology by bedside Vital Signs: Date Time Temp Pulse Resp B/P Pulse Ox O2 Delivery O2 Flow Rate FiO2 08/20/16 15:39 36.6 62 20 157/70 94 Room Air 08/20/16 12:07 Room Air 08/20/16 11:25 36.5 65 20 158/96 96 Room Air 08/20/16 08:00 Room Air 08/20/16 07:48 36.8 67 20 156/84 96 Room Air 08/20/16 04:00 Room Air 08/20/16 03:40 36.6 59 20 158/92 98 Room Air 08/20/16 00:01 96 Room Air 08/19/16 23:27 37.0 66 18 149/80 96 Room Air 08/19/16 20:00 95 Room Air 08/19/16 19:32 36.8 76 18 132/63 95 Lab Results: Results Past 24 Hours Test 08/19/16 16:40 08/19/16 20:56 08/19/16 21:13 08/20/16 06:23 Range/Units Urine Opiates Screen NEG NEG Urine Methadone, Qualitative NEG NEG Urine Barbiturates NEG NEG Urine Phencyclidine (PCP) Level NEG NEG Ur Amphetamine/Methamphetamine NEG NEG MDMA (Ecstasy) Screen NEG NEG Urine Benzodiazepines Screen NEG NEG Urine Cocaine Metabolite NEG NEG Urine Marijuana (THC) NEG NEG Bedside Glucose 146 70-90 mg/dl Total Creatine Kinase 121 26-192 U/L Creatine Kinase MB 2.5 0.5-3.6 ng/ml Creatine Kinase MB Ratio 2.1 0-3.0 Troponin I 0.034 0-0.045 ng/ml White Blood Count 3.21 4.8-10.8 K/uL Red Blood Count 4.13 4.2-5.4 M/uL Hemoglobin 11.9 12.0-16.0 g/dL Hematocrit 34.9 37-47 % Mean Corpuscular Volume 84.5 80-100 fL Mean Corpuscular Hemoglobin 28.8 25-34 pg Mean Corpuscular Hemoglobin Concent 34.1 32-36 g/dl RDW Standard Deviation 42.7 36.4-46.3 fL RDW Coefficient of Variation 13.9 11.5-14.5 % Platelet Count 106 130-400 K/uL Mean Platelet Volume 10.7 7.4-10.4 fL Sodium Level 139 136-145 mmol/L Potassium Level 3.8 3.5-5.1 mmol/L Chloride Level 107 98-107 mmol/L Carbon Dioxide Level 23 21-32 mmol/L Anion Gap 9.0 3-11 mmol/L Blood Urea Nitrogen 8 7-18 mg/dl Creatinine 0.70 0.60-1.20 mg/dl Est Creatinine Clear Calc Drug Dose 75.2 ml/min Estimated GFR () 99.6 Estimated GFR (Non- 86.0 BUN/Creatinine Ratio 10.9 10-20 Random Glucose 149 70-99 mg/dl Calcium Level 8.5 8.5-10.1 mg/dl Magnesium Level 1.9 1.8-2.4 mg/dl Triglycerides Level 218 0-150 mg/dl Cholesterol Level 155 0-200 mg/dl HDL Cholesterol 36 mg/dl LDL Cholesterol, Calculated 75 mg/dl VLDL Cholesterol, Calculated 44 mg/dl Cholesterol/HDL Ratio 4.3 Test 08/20/16 06:40 08/20/16 11:23 08/20/16 16:06 Range/Units Bedside Glucose 146 133 123 70-90 mg/dl
[2016-08-20 19:33] VITALS: BP 130/77; PULSE 65; TEMP 36.7; O2SAT 97
[2016-08-20] MEDS: SIMVASTATIN 20 MG TAB PO SCH (20:03)
[2016-08-20] MEDS: ENOXAPARIN 40 MG/0.4 ML SYR SC SCH (20:04)
[2016-08-21 00:10] VITALS: BP 136/72; PULSE 61; TEMP 36.6; O2SAT 97
[2016-08-21 04:19] VITALS: BP 171/84; PULSE 66; TEMP 36.5; O2SAT 97
[2016-08-21 06:58] LABS: BUN/CREATININE RATIO 13.7 (10-20); CALCIUM 8.6 mg/dl (8.5-10.1); CREATININE 0.86 mg/dl (0.60-1.20); POTASSIUM 3.9 mmol/L (3.5-5.1)
[2016-08-21 07:55] VITALS: BP 151/80; PULSE 65; TEMP 36.2; O2SAT 97
[2016-08-21] MEDS: INSULIN ASPART 100 UNITS/ML 3 ML PEN SC SCH ×2 (08:06→12:26)
[2016-08-21] MEDS: CEROVITE ADV FORMULA TAB PO SCH (08:08)
[2016-08-21] MEDS: METOPROLOL TARTRATE 50 MG TAB PO SCH (08:08)
[2016-08-21] MEDS: PANTOprazole SOD 40 MG TAB PO SCH (08:09)
[2016-08-21] MEDS: PAROXETINE 20 MG TAB PO SCH (08:09)
[2016-08-21] MEDS ORDERED: ASPIRIN 81 MG ECTAB PO SCH (09:00)
[2016-08-21] MEDS ORDERED: CLOPIDOGREL BISULFATE 75 MG TAB PO SCH (09:00)
--- NOTE | 2016-08-21 10:30 | PROGRESS NOTE ---
DATE: 08/21/2016 I am seeing Mrs. Breen for encephalopathy on a background of modest cognitive impairment. She was admitted for an episode of slurred speech and altered consciousness which lasted about an hour. EEG showed diffuse and independent slowing but no silvia seizure activity. CT of the head showed progressive deep white matter changes in a more posterior distribution, compared to a prior imaging study. CTA of the head showed no significant stenosis. No enhancement in the previously described white matter hypodensities. Echocardiography is pending. The patient has not had any new events. PHYSICAL EXAMINATION: GENERAL: She is awake and alert; oriented to place, not day or time. NECK: There are no carotid bruits. HEART: Regular rate and rhythm. VITAL SIGNS: 36.2, 65, 19, 151/80, 97%. HEENT: There is normal extraocular motility, facial symmetry. Symmetric strength. Normal [id number]. IMPRESSION: Progressive leukoencephalopathy. Continue aspirin and Plavix. Risk factor modification. Check echo. At this point I am not recommending an outpatient monitor as I am not sure that the patient would be a good candidate for long-term anticoagulants. Upon discharge, we will repeat an EEG and see if it is frankly epileptogenic. I cautioned her that she should not be left alone. We will follow with you. CLYDE
[2016-08-21 11:29] VITALS: BP 150/84; PULSE 60; TEMP 36.7; O2SAT 97
--- NOTE | 2016-08-21 12:15 | Progress Note ---
Internal Med Progress Note Date of Service: Aug 21, 2016. Provider Documentation: SUBJECTIVE : Patient is sleepy. Daughter by bedside. Disoriented to place, person and time Denies any complaints- No headaches, nausea, vomiting, fever, chills, slurred speech, localized weakness, numbness, tingling. OBJECTIVE: Vital Signs-as noted below Exam: General -Sleepy, disoriented x 3, No distress Neck-Supple, No JVD Lungs-AEBE decreased, no wheezing Heart-S1, S2 normal, no murmurs Abdomen-Soft, non tender, non distended, BS present Extremities-No edema Neuro-AAOX2, Power- 5/5 all extremities, Sensation normal Diagnostic Radiology CXR Per radiologist read: IMPRESSION: No significant change compared to the prior study. Right basilar interstitial thickening and patchy densities persist. The long-term stability favors a chronic process suggests scarring or atelectasis. However, superimposed pneumonia cannot be entirely excluded. Hiatus hernia. Emphysema. CT HEAD Per radiologist read: Impression: 1. Progressive periventricular and occipital lobe regions of diminished density compared to the prior study. 2. Although possibly simply secondary to progressive chronic small vessel change, etiologies such as progressive posterior encephalopathy, versus a subacute ischemic process may be considered. 3. MRI of the brain if possible is suggested EKG Atrial sensed ventricular paced, 75 BPM, QTc 549 Lab data as noted below. ASSESSMENT & PLAN: Assessment and Plan : 71 year old female presents to the ED with Altered mental status beginning upon waking up in the morning. ALTERED MENTAL STATUS : Per patient's , she was by the edge of her bed not moving for almost an hour, shaky and speech was not clear. Was disoriented when she arrived to ED, improved. Possible TIA ? 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 -With prior history of TIAs, neurology added Plavix , continue with aspirin, statin -Work up- CT Head- Progressive periventricular and occipital lobe regions of diminished density compared to the prior study. 2. Although possibly simply secondary to progressive chronic small vessel change, etiologies such as progressive posterior encephalopathy, versus a subacute ischemic process may be considered. Unable to do MRI as has pacemaker, CTA- No acute findings, white density in occipital regions, Echo- pending, Carotid US - No stenosis noted; Pacemaker interrogation- negative Lipid panel, LDL- 75; Vit B12, Folic acid - normal. Echo - pending HYPOMAGNESEMIA -Resolved DM2 -Hold metformin -SSI coverage -BSG AC HS HTN -stable -continue BB -Restart lisinopril H/O 3RD DEGREE AV BLOCK -S/P pacemaker -interrogated- No events noted DEPRESSION -continue Paxil GERD -continue PPI DVT PROPHYLAXIS:Sq Lovenox CODE STATUS: FULL CODE DISPO Tele monitoring PT/OT ordered- recommend discharge to home with HHS Discussed with daughter be bedside, with progressive dementia, should not leave her home by herself. Understands and agreeable. Does not want to consider any placement. Discussed discharge plan with daughter by bedside. Vital Signs: Date Time Temp Pulse Resp B/P Pulse Ox O2 Delivery O2 Flow Rate FiO2 08/21/16 11:29 36.7 60 17 150/84 97 Room Air 08/21/16 08:00 Room Air 08/21/16 07:55 36.2 65 19 151/80 97 Room Air 08/21/16 04:19 36.5 66 19 171/84 97 Room Air 08/21/16 04:00 Room Air 08/21/16 00:10 36.6 61 20 136/72 97 Room Air 08/21/16 00:00 Room Air 08/20/16 20:00 Room Air 08/20/16 19:33 36.7 65 20 130/77 97 Room Air 08/20/16 16:00 Room Air 08/20/16 15:39 36.6 62 20 157/70 94 Room Air Lab Results: Results Past 24 Hours Test 08/20/16 16:06 08/20/16 19:59 08/21/16 05:55 08/21/16 06:57 Range/Units Bedside Glucose 123 139 155 70-90 mg/dl Sodium Level 142 136-145 mmol/L Potassium Level 3.9 3.5-5.1 mmol/L Chloride Level 106 98-107 mmol/L Carbon Dioxide Level 27 21-32 mmol/L Anion Gap 9.0 3-11 mmol/L Blood Urea Nitrogen 12 7-18 mg/dl Creatinine 0.86 0.60-1.20 mg/dl Est Creatinine Clear Calc Drug Dose 56.7 ml/min Estimated GFR () 77.7 Estimated GFR (Non- 67.0 BUN/Creatinine Ratio 13.7 10-20 Random Glucose 163 70-99 mg/dl Calcium Level 8.6 8.5-10.1 mg/dl Test 08/21/16 09:55 08/21/16 11:10 Range/Units Erythrocyte Sedimentation Rate 19 0-21 mm/hr Bedside Glucose 161 70-90 mg/dl
--- NOTE | 2016-08-21 12:17 | ECHOCARDIOGRAM REPORT ---
*NOTICE TO RECEIVING CONSTITUTION PARTY AGENCY This information is strictly Confidential and protected under [place] law. [place] law prohibits you from making any further disclosure of this information unless further disclosure is expressly permitted by the written consent of the person to whom it pertains or is authorized by law. A general authorization for the release of medical or other information is not sufficient for this purpose. Hospital accepts no responsibility if the information is made available to any other person, INCLUDING THE PATIENT. Interpretation Summary * Name: BILL LANDRY Study Date: 08/21/2016 08:39 AM BP: 158/96 mmHg * Patient Location: C.2T\S\S236\S\1 HR: 82 * : 1945 (M/d/yyyy) Gender: Female Height: 67 in * Age: 71 yrs Ethnicity: [place] Weight: 165 lb * Ordering Physician: Ela Arias * Referring Physician: Self, Referred * Performed By: Manjit Arias RDCS * * Reason For Study: Chest pain * BSA: 1.9 m2 * -- Conclusions -- * The left ventricle is normal in size. * There is severe concentric left ventricular hypertrophy. * Left ventricular systolic function is normal. * Apical wall motion abnormality may reflect pacemaker activation. * The left ventricular wall motion is normal. * Ejection Fraction = 65-70%. * Aortic valve sclerosis moderate, without significant aortic valvular stenosis. * Trace aortic regurgitation. * There is a bioprosthetic mitral valve. * The prosthetic mitral valve appears to open well. * Normal prosthetic mitral valve gradients. * The left atrium is moderately dilated. * Diastolic dysfunction, Grade II (pseudonormalization pattern). Procedure Details * A complete two-dimensional transthoracic echocardiogram was performed (2D, M-mode, Doppler and color flow Doppler). * The study was technically adequate. Left Ventricle * The left ventricle is normal in size. * There is severe concentric left ventricular hypertrophy. * Left ventricular systolic function is normal. * Ejection Fraction = 65-70%. * The left ventricular wall motion is normal. * Apical wall motion abnormality may reflect pacemaker activation. Right Ventricle * The right ventricle is normal in size and function. * There is a pacemaker lead in the right ventricle. Atria * The left atrium is moderately dilated. * Right atrial size is normal. * No ASD detected; PFO is not assessed. Mitral Valve * There is a bioprosthetic mitral valve. * The prosthetic mitral valve appears to open well. * Normal prosthetic mitral valve gradients. Tricuspid Valve * The tricuspid valve is normal. * There is no tricuspid stenosis. * There is trace tricuspid regurgitation. Aortic Valve * The aortic valve is trileaflet. * Aortic valve sclerosis moderate, without significant aortic valvular stenosis. * Trace aortic regurgitation. Pulmonic Valve * The pulmonic valve is not well visualized. Great Vessels * The aortic root is normal size. Pericardium/Pleural * There is no pericardial effusion. Great Vessels * Normal inferior vena cava diameter and respiratory variation suggests normal central venous pressure. Left Ventricular Diastolic Function * Diastolic dysfunction, Grade II (pseudonormalization pattern). MMode 2D Measurements and Calculations IVSd 1.2 cm IVSs 1.7 cm LVIDd 4.0 cm LVIDs 2.4 cm LVPWd 1.4 cm IVS/LVPW 0.86 FS 39.8 % EDV(Teich) 70.5 ml ESV(Teich) 20.5 ml EF(Teich) 70.9 % EDV(cubed) 64.6 ml ESV(cubed) 14.1 ml EF(cubed) 78.1 % % IVS thick 40.5 % LV mass(C)d 185.8 grams LV mass(C)dI 99.7 grams/m\S\2 SV(Teich) 50.0 ml SI(Teich) 26.8 ml/m\S\2 SV(cubed) 50.5 ml SI(cubed) 27.1 ml/m\S\2 Ao root diam 2.9 cm Ao root area 6.8 cm\S\2 ACS 1.4 cm LA dimension 4.1 cm asc Aorta Diam 3.6 cm LA/Ao 1.4 LVOT diam 1.8 cm LVOT area 2.4 cm\S\2 LVAd ap4 14.9 cm\S\2 LVLd ap4 6.4 cm EDV(MOD-sp4) 29.0 ml LVAs ap4 9.5 cm\S\2 LVLs ap4 6.3 cm ESV(MOD-sp4) 12.0 ml EF(MOD-sp4) 58.6 % LVAd ap2 16.2 cm\S\2 LVLd ap2 7.0 cm EDV(MOD-sp2) 31.0 ml LVAs ap2 9.1 cm\S\2 LVLs ap2 6.1 cm ESV(MOD-sp2) 12.0 ml EF(MOD-sp2) 61.3 % SV(MOD-sp4) 17.0 ml SI(MOD-sp4) 9.1 ml/m\S\2 SV(MOD-sp2) 19.0 ml SI(MOD-sp2) 10.2 ml/m\S\2 Doppler Measurements and Calculations MV E max david 108.0 cm/sec MV A max david 125.2 cm/sec MV E/A 0.86 MV dec time 0.32 sec Ao V2 max 132.5 cm/sec Ao max PG 7.0 mmHg Ao max PG (full) 2.4 mmHg EVGENY(V,A) 2.0 cm\S\2 EVGENY(V,D) 2.0 cm\S\2 LV V1 max PG 4.7 mmHg LV V1 max 108.0 cm/sec PA V2 max 82.2 cm/sec PA max PG 2.7 mmHg
[2016-08-21] MEDS ORDERED: LISINOPRIL 10 MG TAB PO SCH (13:00)
[2016-08-21] MEDS ORDERED: PLV75 PO (15:43)
--- NOTE | 2016-08-21 15:45 | Discharge Instructions ---
Discharge Instructions Date of Service Aug 21, 2016. Admission Reason for Admission: Altered Mental Status, Chest Pain Discharge Discharge Diagnosis / Problem: 1. Possible TIA (mini stroke) 2. Probable dementia Discharge Goals Goal(s): Decrease discomfort, Therapeutic intervention Activity Recommendations Activity Limitations: per Instructions/Follow-up section (as tolerated prior to admission with assistance (walker)) . Instructions / Follow-Up Instructions / Follow-Up MEDICATION CHANGES: 1. New medication: Plavix 75 mg daily for possible TIA FOLLOW UP 1. Follow up with PCP in 1 week. We will call you for appt date/time 2. Follow up with neurology in 3-4 weeks. ACTIVITY 24 hour care recommended with symptoms/signs of probable dementia, progressive Current Hospital Diet Patient's current hospital diet: Diabetes Type 2 Diet, AHA Diet (Heart Healthy) Discharge Diet Recommended Diet: AHA Diet (Heart Healthy), Low Sodium Diet (2gm Na), Diabetes Type 2 Diet Pending Studies Studies pending at discharge: no Laboratory Results Lipid Panel Test 08/20/16 06:23 Range/Units Triglycerides Level 218 H 0-150 mg/dl Cholesterol Level 155 0-200 mg/dl HDL Cholesterol 36 mg/dl Cholesterol/HDL Ratio 4.3 LDL Cholesterol, Calculated 75 mg/dl Medical Emergencies . Who to Call and When: Medical Emergencies: If at any time you feel your situation is an emergency, please call 911 immediately. . Non-Emergent Contact Non-Emergency issues call your: Primary Care Provider . . "Provider Documentation" section prepared by Jayna Ruiz. VTE Core Measure Inpt VTE Proph given/why not?: Enoxaparin (Lovenox)SQ
--- NOTE | 2016-08-21 15:50 | Discharge Summary ---
Discharge Summary Date of Service Aug 21, 2016. Discharge Summary Admission Date: Aug 19, 2016 at 13:11 Discharge Date: Aug 21, 2016 Discharge Disposition: Home Principal Diagnosis: 1. Possible TIA 2. Progressive Leucoencephalopathy 3. Hypomagnesemia Secondary Diagnoses/Problems: 1. HTN 2. DM-2 3. GERD 4. Hx of Third degree AV block with Pacemaker 5. Depression Procedures: Tele monitoring EKG Echo CT head CTA US carotid CXR PT/OT Consultations: Neurology Pending Studies/Follow-Up: Instructions / Follow-Up Instructions / Follow-Up MEDICATION CHANGES: 1. New medication: Plavix 75 mg daily for possible TIA FOLLOW UP 1. Follow up with PCP in 1 week. We will call you for appt date/time 2. Follow up with neurology in 3-4 weeks. ACTIVITY 24 hour care recommended with symptoms/signs of probable dementia, progressive Medication Reconciliation New Medications: Clopidogrel Bisulfate (Clopidogrel) 75 Mg Tab 75 MG PO QAM for 30 Days, #30 TAB Continued Medications: Aspirin (Aspirin Ec) 81 Mg Tab 81 MG PO DAILY Lisinopril (Prinivil) 10 Mg Tab 1 TAB PO DAILY for 90 Days, #90 TAB 1 Refill Metformin Ext Rel (Glucophage Ext Rel) 500 Mg Tab 1 TAB PO BID for 30 Days, #60 TAB 3 Refills Metoprolol Tartrate (Lopressor) 25 Mg Tab 50 MG PO BID, TAB Multiple Vitamins W/ Minerals (Womens 50+ Multi Vitamin) 1 Tab Tab 1 TAB PO QAM Pantoprazole (Protonix) 40 Mg Tab 40 MG PO QAM Paroxetine (Paxil) 20 Mg Tab 10 MG PO QAM Simvastatin (Zocor) 20 Mg Tab 20 MG PO HS Admission Information HPI (per Admitting provider): Patient seen and examined. 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 History is taken primarily by the family as the patient is A& Ox0. Family reports that patient was doing well last evening. This morning the patient was sitting on the edge of bed for almost an hour not really doing anything. Her asked what was wrong and her speech was slurred and didn' t make sense. He reports she seemed very shaky. At one point she complained of chest pain and right arm pain so EMS was called. Currently the patient is not oriented. She is tearful and does not answer questions appropriately. She does follow most commands. Family denies any fevers/chills, recently. They deny patient complaining of about any diarrhea or dysuria. She has not seemed SOB. They report she has occasional confusion but nothing everyday. They deny any unilateral weakness or facial droop. In the ED VS are stable, mg is 1.4, CT head shows possible subacute stroke. She will be admitted for further workup and treatment. Physical Exam (per Admitting): General Appearance: + pertinent finding (WD/WN 71 year old female tearful, lying in bed in NAD with family at bedside ) Head: normocephalic, atraumatic Eyes: PERRL, sclerae normal ENT: hearing grossly normal, pharynx normal Neck: supple, no JVD Respiratory/Chest: chest non-tender, lungs clear, normal breath sounds, no respiratory distress, no accessory muscle use Cardiovascular: regular rate, rhythm, no edema, no gallop, no JVD, no murmur , normal peripheral pulses Abdomen/GI: normal bowel sounds, non tender, soft Back: normal inspection, no CVA tenderness, no muscle spasm Extremities/Musculoskelatal: no calf tenderness, normal capillary refill, no pedal edema Neurologic/Psych: + pertinent finding (Alert, disoriented, moves all extremities appropriately with equal strength. Does not follow all commands, does not answer questions appropriately ) Skin: normal color, warm/dry, no rash Lymphatic: no adenopathy Hospital Course Assessment and Plan : 71 year old female presents to the ED with Altered mental status beginning upon waking up in the morning. ALTERED MENTAL STATUS : Per patient's , she was by the edge of her bed not moving for almost an hour, shaky and speech was not clear. Was disoriented when she arrived to ED, improved. -Likely progressive leucoencephalopathy/ Dementia. -D/D considered: Possible TIA ? , Seizures considered, but less likely from history, negative EEG -With prior history of TIAs, neurology added Plavix , continue with aspirin, statin -Work up- CT Head- Progressive periventricular and occipital lobe regions of diminished density compared to the prior study. 2. Although possibly simply secondary to progressive chronic small vessel change, etiologies such as progressive posterior encephalopathy, versus a subacute ischemic process may be considered. Unable to do MRI as has pacemaker, CTA- No acute findings, white density in occipital regions, Echo- pending, Carotid US - No stenosis noted; Pacemaker interrogation- negative Lipid panel, LDL- 75; Vit B12, Folic acid - normal. Echo - EF 65-70%, Gd II diastolic dysfunction, Bioprosthetic mitral valve, LA moderately dilated, Severe concentric LVH, HYPOMAGNESEMIA -Resolved DM2 -Hold metformin -SSI coverage -BSG AC HS HTN -stable -continue BB -Restart lisinopril H/O 3RD DEGREE AV BLOCK -S/P pacemaker -interrogated- No events noted DEPRESSION -continue Paxil GERD -continue PPI DVT PROPHYLAXIS:Sq Lovenox CODE STATUS: FULL CODE DISPO Tele monitoring PT/OT ordered- recommend discharge to home with HHS Discussed with daughter be bedside, with progressive dementia, should not leave her home by herself. Understands and agreeable. Does not want to consider any placement. Discussed discharge plan with daughter by bedside. Total time spent on discharge = 35 MINUTES This includes examination of the patient, discharge planning, medication reconciliation, and communication with other providers. Discharge Instructions Activity Recommendations Activity Limitations: per Instructions/Follow-up section (as tolerated prior to admission with assistance (walker)) . Instructions / Follow-Up Instructions / Follow-Up MEDICATION CHANGES: 1. New medication: Plavix 75 mg daily for possible TIA FOLLOW UP 1. Follow up with PCP in 1 week. We will call you for appt date/time 2. Follow up with neurology in 3-4 weeks. ACTIVITY 24 hour care recommended with symptoms/signs of probable dementia, progressive Current Hospital Diet Patient's current hospital diet: Diabetes Type 2 Diet, AHA Diet (Heart Healthy) Discharge Diet Recommended Diet: AHA Diet (Heart Healthy), Low Sodium Diet (2gm Na), Diabetes Type 2 Diet Pending Studies Studies pending at discharge: no Laboratory Results Lipid Panel Test 08/20/16 06:23 Range/Units Triglycerides Level 218 H 0-150 mg/dl Cholesterol Level 155 0-200 mg/dl HDL Cholesterol 36 mg/dl Cholesterol/HDL Ratio 4.3 LDL Cholesterol, Calculated 75 mg/dl Medical Emergencies . Who to Call and When: Medical Emergencies: If at any time you feel your situation is an emergency, please call 911 immediately. . Non-Emergent Contact Non-Emergency issues call your: Primary Care Provider . . "Provider Documentation" section prepared by Jayna Ruiz. VTE Core Measure Inpt VTE Proph given/why not?: Enoxaparin (Lovenox)SQ
[2016-08-21 16:07] VITALS: BP 150/84; PULSE 60; TEMP 36.7; O2SAT 97
[2016-08-26 12:29] LABS: ANA TITER 1:40 TITER (<1:40)
[2016-12-28] MEDS ORDERED: DTR/5 PO (22:29)
== END 2016-08-21 16:25 | disposition home health service (06) | DRG 56 ==
LOC: ENRESERVTM → ENRESERVDT → EDBD 09:40 → C.EDA 09:41 → C.2T 13:11
PROVIDERS: ADMIT Hospitalist; ATTEND Internal Medicine
DX: I67.3 Progressive vascular leukoencephalopathy (principal); G93.49 Other encephalopathy; I44.2 Atrioventricular block, complete; I42.1 Obstructive hypertrophic cardiomyopathy; E11.9 Type 2 diabetes mellitus without complications; E78.5 Hyperlipidemia, unspecified; K21.9 Gastro-esophageal reflux disease without esophagitis; M81.0 Age-related osteoporosis without current pathological fracture; M19.90 Unspecified osteoarthritis, unspecified site; M10.9 Gout, unspecified; Z96.60 Presence of unspecified orthopedic joint implant; Z90.710 Acquired absence of both cervix and uterus; Z79.82 Long term (current) use of aspirin; I50.9 Heart failure, unspecified; E83.42 Hypomagnesemia; Z95.0 Presence of cardiac pacemaker; F32.9 Major depressive disorder, single episode, unspecified

== ENCOUNTER 2016-12-28 20:58 | Emergency (ER) | payer OTHER, MEDICARE ==
[~2016-12-28] VITALS: Ht 170.2 cm; Wt 78.0 kg
[~2016-12-28 20:58] MED LIST changes: -CHOL100010 PO; -CRAN1CAP15 PO; -DOCU100C31 PO; -FERR1TAB13 PO; +LISI10TA PO; +LPR25 PO; +METF-382 PO; -METO50TA7 PO; +PLV75 PO
[2016-12-28 21:11] VITALS: TEMP 36.7; Ht 170.2 cm; Wt 78.0 kg
[2016-12-28] MEDS ORDERED: ONDANSETRON INJ 2 MG/ML 2 ML VIAL IV STA (21:30)
[2016-12-28] MEDS ORDERED: OPTIRAY 320 IV PRN (21:45)
[2016-12-28 21:55] LABS: BASO % 0.2 %; BASO ABS # 0.01 K/uL (0-0.2); COMPLETE YES; EOS % 2.2 %; IG% 0.3 %; LYMPH ABS # 1.16 K/uL (1.2-3.4); MEAN CELL VOLUME 83.3 fL (80-100); MEAN CORPUSCULAR HEMOGLOBIN 27.9 pg (25-34); MEAN CORPUSCULAR HGB CONC 33.4 g/dl (32-36); MEAN PLATELET VOLUME 10.2 fL (7.4-10.4); MONO % 11.2 %; NEUT % 66.1 %; PLATELET COUNT 122 K/uL (130-400)
[2016-12-28 22:09] LABS: CREATININE 0.83 mg/dl (0.60-1.20); POTASSIUM 3.9 mmol/L (3.5-5.1)
[2016-12-28] MEDS ORDERED: CHOLTAB11 PO (22:29)
[2016-12-28] MEDS ORDERED: OXYB5TAB74 PO (22:29)
[2016-12-28] MEDS ORDERED: BISA-16 PO (22:29)
[2016-12-29 00:30] VITALS: BP 147/80; PULSE 72; O2SAT 95
--- NOTE | 2016-12-29 00:46 | EMERGENCY ROOM VISIT NOTE ---
History Report prepared by Lonnie: Delonte Hoff Under the Supervision of: Dr. Daryl Cruz M.D. First contact with patient: 21:22 Chief Complaint: ABDOMINAL PAIN Stated Complaint: BAD ABD PAIN History of Present Illness The patient is a 71 year old female who presents to the Emergency Room with complaints of intermittent sharp bilateral lower quadrant abdominal pain that began this morning. She notes that she had a more mild version of this pain intermittently over the past week, but it has never been this bad. Nothing makes her pain better or worse. She did have a fall last weekend, but she seemed unharmed without any signs of trauma. She fell while bending over. She denies headache or head injury. The patient denies any nausea, vomiting, fevers , melena, hematochezia, or abnormal urinary symptoms. She was constipated last weekend and tried multiple doses of Dulcolax. She then began having diarrhea this morning. She has a history of chronic constipation. She has a history of vascular dementia. She also has a pacemaker/defibrillator in place. Source of History: patient Onset: this morning Position: abdomen Symptom Intensity: 10/10 Quality: sharp Timing: intermittent Associated Symptoms: + diarrhea, No fevers, No nausea, No vomiting, No melena, No hematochezia, No urinary symptoms Review of Systems See HPI for pertinent positives & negatives. 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 (8) Hypertrophic obstructive cardiomyopathy (9) Osteoarthritis (10) Osteoporosis Surgical Problems: (1) History of hysterectomy (2) History of right shoulder replacement (3) History of total left hip replacement (4) Hx of tonsillectomy (5) S/P MVR (mitral valve replacement) Family History Cancer Diabetes mellitus FH: heart disease Hypertension Social History Smoking Status: Never Smoker Alcohol Use: none Marital Status: Housing Status: lives with significant other Occupation Status: retired Current/Historical Medications Scheduled Aspirin (Aspirin Ec), 81 MG PO DAILY Bisacodyl (Dulcolax), 2 TAB PO UD Cholecalciferol (D-5000), 1 TAB PO DAILY Clopidogrel Bisulfate (Clopidogrel), 75 MG PO QAM Lisinopril (Prinivil), 1 TAB PO DAILY Metformin Ext Rel (Glucophage Ext Rel), 1 TAB PO BID Metoprolol Tartrate (Lopressor), 50 MG PO BID Multiple Vitamins W/ Minerals (Womens 50+ Multi Vitamin), 1 TAB PO QAM Oxybutynin Chloride (Ditropan), 1 TAB PO NOON Pantoprazole (Protonix), 40 MG PO QAM Paroxetine (Paxil), 10 MG PO QAM Simvastatin (Zocor), 20 MG PO HS Allergies Coded Allergies: Sulfa Antibiotics (Unverified Allergy, Intermediate, RASH - HAPPENED A LONG TIME AGO, 12/28/16) Penicillins (Verified Allergy, Unknown, RASH - HAPPENED LONG TIME AGO, ) Physical Exam Vital Signs Date Time Temp Pulse Resp B/P (MAP) Pulse Ox O2 Delivery O2 Flow Rate FiO2 12/28/16 22:52 72 18 148/80 94 Room Air 12/28/16 22:07 73 12/28/16 21:11 36.7 77 20 141/86 98 Room Air Physical Exam Constitutional: Vital signs reviewed. Eyes: Pupils are equal round reactive to light. Conjunctiva are noninjected. ENT: Pharynx is clear without erythema or exudate. Mucous membranes are moist. Neck supple without meningeal signs. Respiratory: Clear to auscultation bilaterally. Breath sounds are equal bilaterally. Cardiovascular: Regular rate and rhythm. No rubs or gallops. GI: Soft, nondistended and nontender. Bowel sounds are present. Musculoskeletal: No peripheral edema. No lower extremity tenderness. Integumentary: No cyanosis. Neurological: The patient is awake and alert. No focal deficits. Psychiatric: Normal affect. Medical Decision & Procedures ER Provider Diagnostic Interpretation: Radiology results as stated below per my review and the radiologist's interpretation: CT ABDOMEN & PELVIS: Comparison: CT dated 09/15/2014. No evidence of acute inflammatory or obstructive process in the abdomen or pelvis to account for diffuse abdominal pain. No bowel obstruction, bowel wall thickening, ascites or free air. Few colonic diverticula without evidence of acute diverticulitis, as clinically queried. Moderate hiatal hernia. Multilevel compression fractures of the visualized lower thoracic and lumbar spine, similar compared to prior CT dated 09/15/2014. Trace right pleural effusion. Incidental findings: Normal appendix visualized. Atherosclerotic vascular disease without abdominal aortic aneurysm. Status post hysterectomy. Cardiac device leads visualized. Total left hip arthroplasty with associated artifact. Radiologist: Kristen Hutson MD Laboratory Results 12/28/16 21:44 Red Blood Count 4.20, Mean Corpuscular Volume 83.3, Mean Corpuscular Hemoglobin 27.9, Mean Corpuscular Hemoglobin Concent 33.4, Mean Platelet Volume 10.2, Neutrophils (%) (Auto) 66.1, Lymphocytes (%) (Auto) 20.0, Monocytes (%) (Auto) 11.2, Eosinophils (%) (Auto) 2.2, Basophils (%) (Auto) 0.2, Neutrophils # (Auto ) 3.83, Lymphocytes # (Auto) 1.16, Monocytes # (Auto) 0.65, Eosinophils # (Auto ) 0.13, Basophils # (Auto) 0.01 12/28/16 21:44 Test 12/28/16 21:44 White Blood Count 5.80 K/uL (4.8-10.8) Red Blood Count 4.20 M/uL (4.2-5.4) Hemoglobin 11.7 g/dL (12.0-16.0) Hematocrit 35.0 % (37-47) Mean Corpuscular Volume 83.3 fL (80-100) Mean Corpuscular Hemoglobin 27.9 pg (25-34) Mean Corpuscular Hemoglobin Concent 33.4 g/dl (32-36) Platelet Count 122 K/uL (130-400) Mean Platelet Volume 10.2 fL (7.4-10.4) Neutrophils (%) (Auto) 66.1 % Lymphocytes (%) (Auto) 20.0 % Monocytes (%) (Auto) 11.2 % Eosinophils (%) (Auto) 2.2 % Basophils (%) (Auto) 0.2 % Neutrophils # (Auto) 3.83 K/uL (1.4-6.5) Lymphocytes # (Auto) 1.16 K/uL (1.2-3.4) Monocytes # (Auto) 0.65 K/uL (0.11-0.59) Eosinophils # (Auto) 0.13 K/uL (0-0.5) Basophils # (Auto) 0.01 K/uL (0-0.2) RDW Standard Deviation 42.3 fL (36.4-46.3) RDW Coefficient of Variation 14.1 % (11.5-14.5) Immature Granulocyte % (Auto) 0.3 % Immature Granulocyte # (Auto) 0.02 K/uL (0.00-0.02) Anion Gap 9.0 mmol/L (3-11) Est Creatinine Clear Calc Drug Dose 65.0 ml/min Estimated GFR () 81.1 Estimated GFR (Non- 70.0 BUN/Creatinine Ratio 29.0 (10-20) Calcium Level 9.0 mg/dl (8.5-10.1) Total Bilirubin 0.6 mg/dl (0.2-1) Direct Bilirubin 0.2 mg/dl (0-0.2) Aspartate Amino Transf (AST/SGOT) 23 U/L (15-37) Alanine Aminotransferase (ALT/SGPT) 22 U/L (12-78) Alkaline Phosphatase 56 U/L (45-117) Total Protein 7.0 gm/dl (6.4-8.2) Albumin 3.2 gm/dl (3.4-5.0) Lipase 228 U/L (73-393) Laboratory results as reviewed by me. Medications Administered Medications (Trade) Dose Ordered Sig/Radha Route Start Time Stop Time Status Last Admin Dose Admin Ondansetron HCl (Zofran Inj) 4 mg NOW STAT IV 12/28/16 21:30 12/28/16 21:32 DC 12/28/16 21:48 4 MG ED Course 2121: The patient was evaluated in room B4. A complete history and physical exam was performed. 2129: Ordered Zofran Inj 4 mg IV 0011: After reassessment, the patient is not having any significant pain. She cannot give a urinary specimen, but she is not having any urinary symptoms currently. 0023: Upon reevaluation, the patient appeared to have improvement of her symptoms. I discussed melissa's findings with her and her family. They verbalized agreement of the treatment plan. She was discharged home. Medical Decision This is a 71-year-old female who presents with lower abdominal pain and diarrhea. Differential diagnosis includes diverticulitis, abscess, perforation , appendicitis, colitis, constipation, partial bowel obstruction. I did perform a limited focused review of portions of the patient's old chart on the electronic medical record. The patient has had no recent pertinent visits to this hospital. I did evaluate the patient as noted above. The patient is presenting with periodic spasms of pain in the lower abdomen. On exam she has no tenderness to palpation. She has been having intermittent constipation with diarrhea today. She denies any recent antibiotic use or sick contacts. IV access was established. I did order a urinalysis but the patient was unable to give us a sample. She does deny any urinary symptoms. I did order and review the patient 's blood work as noted in the electronic medical record. Her white blood cell count is not elevated. I did treat the patient with IV Zofran. I did order a CT of the abdomen and pelvis. I did review the images myself as well as the radiology report as described above. There is no evidence of acute abnormality on CT scanning. I did discuss the test results with the patient. I did recommend close follow up with her physician within 48 hours for reevaluation. At this time there is no indication for further testing or admission. The patient appears comfortable. She has some occasional spasms on her left side which may be related to her recent constipation/diarrhea. She was given return instructions and discharged in good condition. She will hold her metformin because of the IV dye which she received for the CT scan. Medication Reconcilliation Current Medication List: was personally reviewed by me Blood Pressure Screening Patient's blood pressure: Elevated blood pressure Blood pressure disposition: Referred to PCP Impression Primary Impression: Lower abdominal pain Scribe Attestation The scribe's documentation has been prepared under my direct and personally reviewed by me in its entirety. I confirm that the note above accurately reflects all work, treatment, procedures, and medical decision making performed by me. Departure Information Dispostion Home / Self-Care Referrals Anahi Marie M.D. (PCP) Forms HOME CARE DOCUMENTATION FORM, IMPORTANT VISIT INFORMATION Patient Instructions ED Abdominal Pain Unkn Cause, [facility] Additional Instructions You have been examined and treated today on an emergency basis only. This is not a substitute for, or an effort to provide, complete comprehensive medical care. It is impossible to recognize and treat all injuries or illnesses in a single emergency department visit. It is therefore important that you follow up closely with your physician within 48 hours. Call as soon as possible for an appointment. Return for worsening symptoms or if you develop fever, vomiting, rectal bleeding or any other concerning symptoms.
--- NOTE | 2016-12-29 07:05 | DIAGNOSTIC IMAGING REPORT ---
ABD/PELVIS IV AND ORAL CONT CLINICAL HISTORY: 71 years-old Female presenting with eval for divertic, diffuse abdominal pain, history of appendectomy. TECHNIQUE: Multidetector CT of the abdomen and pelvis was performed after the administration of oral and intravenous contrast. IV contrast: 115 mL of Optiray 320. A dose lowering technique was used consistent with the principles of ALARA (as low as reasonably achievable). COMPARISON: CT pelvis from 12/07/2015. CT DOSE (mGy.cm): The estimated cumulative dose is 864.56 mGy.cm. FINDINGS: [employer] topogram: Total left hip arthroplasty. Median sternotomy wires and implanted cardiac defibrillator lead to the right ventricular apex noted. Lung bases: Minimal groundglass and bandlike opacities at the lung bases, likely atelectasis. Moderate hiatal hernia. Multichamber enlargement of the heart. Mitral annular, aortic valve, and coronary artery calcification. No pericardial effusion. Trace right pleural effusion. Liver: Normal morphology. No liver lesion. Patent hepatic vasculature. Biliary: No intrahepatic or extrahepatic biliary ductal dilatation. Normal gallbladder. Pancreas: Normal. Spleen: Normal. Adrenal glands: Normal. Kidneys and ureters: No nephrolithiasis. No hydronephrosis. Ureters normal. Bladder: Mild circumference of bladder wall thickening as well as more focal anterior bladder wall thickening. Pelvic organs: Uterus surgically absent. Bowel: Limited sigmoid diverticula. No bowel obstruction. As mentioned before moderate hiatal hernia. Duodenal diverticulum at the junction of the second and third portion of the pancreatic head. Peritoneal cavity: No free fluid or intraperitoneal gas. Vasculature: Atherosclerosis of the normal caliber abdominal aorta. IVC patent. Lymph nodes: Few prominent portacaval lymph nodes. Abdominal wall: Diastases of the abdominis rectus. Small fat-containing of [place] hernia. Musculoskeletal: Total left hip arthroplasty without evidence of complication. Heterogeneity of the lateral aspect of the left sacral annulus likely sequela of previously identified subtle fracture. Degenerative changes of the spine. Endplate can cavity of L4 likely related to osteopenia/osteoporosis. IMPRESSION: 1. No evidence of diverticulitis. Only limited sigmoid diverticula noted. 2. Bladder wall thickening could suggest cystitis. Correlate with urinalysis. More focal anterior bladder wall thickening may be secondary to underdistention, although cystoscopy could be considered as clinically warranted. 3. Bibasilar atelectasis. Electronically signed by: Aleksandar Scott M.D. 12/29/2016 7:04 AM Dictated Date/Time: 12/29/2016 6:53 AM
== END 2016-12-29 00:35 | disposition home or self-care (01) ==
LOC: C.EDB 20:59
DX: R10.31 Right lower quadrant pain (principal); R10.32 Left lower quadrant pain; R19.7 Diarrhea, unspecified; K59.00 Constipation, unspecified; F01.50 Vascular dementia, unspecified severity, without behavioral disturbance, psychotic disturbance, mood disturbance, and anxiety; Z95.0 Presence of cardiac pacemaker; I49.9 Cardiac arrhythmia, unspecified; E11.9 Type 2 diabetes mellitus without complications; E78.5 Hyperlipidemia, unspecified; K21.9 Gastro-esophageal reflux disease without esophagitis; M10.9 Gout, unspecified; I50.9 Heart failure, unspecified; I42.1 Obstructive hypertrophic cardiomyopathy; M19.90 Unspecified osteoarthritis, unspecified site; M81.0 Age-related osteoporosis without current pathological fracture; Z90.710 Acquired absence of both cervix and uterus; Z96.642 Presence of left artificial hip joint; Z96.611 Presence of right artificial shoulder joint; Z95.2 Presence of prosthetic heart valve; Z79.82 Long term (current) use of aspirin; Z79.84 Long term (current) use of oral hypoglycemic drugs; Z83.3 Family history of diabetes mellitus; Z82.49 Family history of ischemic heart disease and other diseases of the circulatory system